=== PATIENT | female | born 1935 | race Caucasian/White ===

== ENCOUNTER 2017-09-04 13:13 | Emergency (ER) | payer OTHER ==
[~2017-09-04] VITALS: Ht 162.6 cm; Wt 59.8 kg
[~2017-09-04 13:13] MED LIST: ALPR0.25 PO; ASPI325T17 PO; CALC-141 PO; CHOL200074 PO; ENOX40SY4 SQ; HYDR-3240 PO; HYDR-882 PO; LORA-446 PO; MELO15TA24 PO; MIRT15TA4 PO; MULT-658 PO; OMEP20CA9 PO; OXYC10TA6 PO; ROPI2TAB4 PO; SENN8.6T87 PO; VANC125C2 PO
[2017-09-04] MEDS ORDERED: ACETAMINOPHEN 500 MG TABLET ONE (14:45)
[2017-09-04 14:53] LABS: MICROSCOPIC INDICATED
[2017-09-04 14:54] LABS: BASOPHILS # (AUTO) 0.02 x10^3/uL (0-0.1); BASOPHILS % (AUTO) 0 % (0-1); EOSINOPHILS % (AUTO) 0 % (1-7); LYMPHOCYTES % (AUTO) 5 % (22-44); MD NO; MEAN CORPUSCULAR HEMOGLOBIN 28.4 pg (27.0-34.8); MEAN CORPUSCULAR VOLUME 86.1 fL (80-100); MEAN PLATELET VOLUME 9.7 fL (7.4-10.4); MONOCYTES # (AUTO) 0.72 x10^3/uL (0.2-0.8); MONOCYTES % (AUTO) 6 % (2-9); NEUTROPHILS # (AUTO) 10.43 x10^3/uL (1.8-6.8); NEUTROPHILS % (AUTO) 89 % (42-75); PLATELET COUNT 222 x10^3/uL (130-400); RED BLOOD COUNT 4.15 x10^6/uL (3.82-5.3); RED CELL DISTRIBUTION WIDTH 15.5 % (9.6-15.2)
[2017-09-04 14:55] LABS: CULTURE INDICATED? YES
[2017-09-04] MEDS ORDERED: ACETAMINOPHEN 500 MG TABLET PO ONE (15:00)
[2017-09-04 15:01] LABS: ALBUMIN 3.4 g/dL (3.4-5.0); ANION GAP 7 mmol/L (5-15); CALCIUM 9.7 mg/dL (8.5-10.1); CHLORIDE 107 mmol/L (98-107); CREATININE 0.85 mg/dL (0.55-1.02)
[2017-09-04 15:32] VITALS: BP 107/53
[2017-09-04] MEDS ORDERED: CEFTRIAXONE 1,000 MG ONE (15:40)
[2017-09-04] MEDS ORDERED: LIDOCAINE-MPF 1%, 2ML ONE (15:40)
[2017-09-04] MEDS ORDERED: CEFTRIAXONE 1,000 MG IM ONE (16:00)
== END 2017-09-04 16:24 | disposition home or self-care (01) ==
LOC: ED 15:43
DX: N30.00 Acute cystitis without hematuria (principal); R50.9 Fever, unspecified
CPT/HCPCS: 36415; 71045; 80048; 81001; 82040; 83605; 84145; 85025; 87040; 87077; 87086; 87186; 93005; 96372; 99285; J0696

== ENCOUNTER 2017-09-27 00:14 | Inpatient (IN) | payer OTHER ==
[~2017-09-27] VITALS: Ht 162.6 cm; Wt 65.5 kg
[2017-09-27] MEDS ORDERED: SODIUM CHLORIDE 0.9% 1,000ML IVBOLUS ONE (00:30)
[2017-09-27 00:44] LABS: BASOPHILS # (AUTO) 0.02 x10^3/uL (0-0.1); BASOPHILS % (AUTO) 0 % (0-1); EOSINOPHILS % (AUTO) 0 % (1-7); LYMPHOCYTES # (AUTO) 0.36 x10^3/uL (1-3.4); LYMPHOCYTES % (AUTO) 3 % (22-44); MD NO; MEAN CORPUSCULAR HEMOGLOBIN 28.6 pg (27.0-34.8); MEAN CORPUSCULAR HGB CONC 34.1 g/dL (32.4-35.8); MEAN CORPUSCULAR VOLUME 83.7 fL (80-100); MONOCYTES % (AUTO) 5 % (2-9); NEUTROPHILS # (AUTO) 10.09 x10^3/uL (1.8-6.8); NEUTROPHILS % (AUTO) 91 % (42-75); PLATELET COUNT 318 x10^3/uL (130-400); RED BLOOD COUNT 3.34 x10^6/uL (3.82-5.3); RED CELL DISTRIBUTION WIDTH 15.1 % (9.6-15.2)
[2017-09-27 00:56] LABS: ALANINE AMINOTRANSFERASE 27 U/L (12-78); ALBUMIN 2.1 g/dL (3.4-5.0); ANION GAP 13 mmol/L (5-15); CALCIUM 7.9 mg/dL (8.5-10.1); CHLORIDE 102 mmol/L (98-107); CREATININE 0.96 mg/dL (0.55-1.02)
[2017-09-27 00:58] LABS: ALKALINE PHOSPHATASE 50 U/L (45-117); BILIRUBIN,TOTAL 0.4 mg/dL (0.2-1.0); TOTAL PROTEIN 6.3 g/dL (6.4-8.2)
[2017-09-27 01:26] LABS: MICROSCOPIC AUTO
[2017-09-27 01:30] LABS: CULTURE INDICATED? YES
[2017-09-27] MEDS ORDERED: CEFTRIAXONE PMX 1GM/50ML 50 ML ONE (01:47)
[2017-09-27] MEDS ORDERED: CEFTRIAXONE 1,000 MG in SODIUM CHLORIDE 0.9% 50 ML IVPB ONE (02:00)
[2017-09-27] MEDS ORDERED: POTASSIUM CHLORIDE 40 MEQ in SODIUM CHLORIDE 0.9% 500 ML IV ONE (02:00)
[2017-09-27] MEDS ORDERED: PHENAZOPYRIDINE 200 MG TABLET PO ONE (02:00)
[2017-09-27] MEDS ORDERED: PHENAZOPYRIDINE 200 MG TABLET ONE (02:17)
[2017-09-27] MEDS ORDERED: ONDANSETRON 2MG/ML, 2ML IVPush PRN (02:30)
[2017-09-27] MEDS ORDERED: DOCUSATE 100 MG CAPSULE PO PRN (02:30)
[2017-09-27] MEDS ORDERED: ENALAPRILAT 1.25 MG/ML, 2ML IVPush PRN (02:30)
[2017-09-27] MEDS ORDERED: PROMETHAZINE 25 MG/ML, 1ML IM PRN (02:30)
[2017-09-27] MEDS ORDERED: morphine SULFATE 10 MG/ML, 1ML IVPush PRN (02:30)
[2017-09-27] MEDS ORDERED: hydrALAzine 20 MG/ML, 1ML IVPush PRN (02:30)
[2017-09-27] MEDS ORDERED: ACETAMINOPHEN 325 MG TABLET PO PRN (02:30)
[2017-09-27] MEDS ORDERED: OXYcodone IR 5MG TABLET PO PRN (02:30)
[2017-09-27] MEDS ORDERED: POLYETHYLENE GLYCOL 17 GM PACKET PO PRN (02:30)
[2017-09-27] MEDS ORDERED: LABETALOL 5MG/ML, 20ML IVPush PRN (02:30)
[2017-09-27] MEDS ORDERED: ONDANSETRON ODT 4 MG PO PRN (02:30)
[2017-09-27] MEDS ORDERED: BISACODYL 10 MG SUPP PR PRN (02:30)
[2017-09-27 02:58] LABS: HEMOGLOBIN A1C 6.2 % (4.2-6.3)
[2017-09-27] MEDS ORDERED: CEFTRIAXONE 1,000 MG in SODIUM CHLORIDE 0.9% 50 ML IV ONE (03:00)
[2017-09-27 03:01] LABS: FREE T4 (FREE THYROXINE) 1.28 ng/dL (0.76-1.46); THYROID STIMULATING HORMONE 0.565 mIU/L (0.358-3.740)
[2017-09-27 04:14] VITALS: BP 95/51
[2017-09-27] MEDS ORDERED: MAGNESIUM SULFATE PMX 2GM/50ML 50 ML IV ONE (08:00)
[2017-09-27 08:19] VITALS: BP 84/50
[2017-09-27 08:37] VITALS: BP 92/58
[2017-09-27] MEDS: NS + 40MEQ KCL 1,000 ML IV SCH ×2 (08:38→22:46)
[2017-09-27] MEDS: ASPIRIN 325 MG TABLET PO SCH ×2 (08:40→22:26)
[2017-09-27] MEDS: MAGNESIUM CHLORIDE 64 MG TABLET.DR PO SCH ×2 (10:48→22:26)
[2017-09-27 14:10] VITALS: BP 98/62
[2017-09-27 20:44] VITALS: BP 118/76
[2017-09-27] MEDS: ROPINIROLE 1MG TABLET PO SCH (22:26)
[2017-09-28 01:37] VITALS: BP 106/69
[2017-09-28] MEDS: CEFTRIAXONE 2 GM in SODIUM CHLORIDE 0.9% 50 ML IV SCH (02:20)
[2017-09-28 05:33] LABS: ALANINE AMINOTRANSFERASE 38 U/L (12-78); ALBUMIN 1.9 g/dL (3.4-5.0); ANION GAP 8 mmol/L (5-15); CALCIUM 7.8 mg/dL (8.5-10.1); CHLORIDE 114 mmol/L (98-107); CREATININE 0.63 mg/dL (0.55-1.02)
[2017-09-28 05:34] LABS: BASOPHILS % (AUTO) 0 % (0-1); EOSINOPHILS # (AUTO) 0.03 x10^3/uL (0-0.4); EOSINOPHILS % (AUTO) 1 % (1-7); LYMPHOCYTES # (AUTO) 1.55 x10^3/uL (1-3.4); LYMPHOCYTES % (AUTO) 21 % (22-44); MD NO; MEAN CORPUSCULAR HEMOGLOBIN 28.8 pg (27.0-34.8); MEAN CORPUSCULAR HGB CONC 34.2 g/dL (32.4-35.8); MEAN CORPUSCULAR VOLUME 84.4 fL (80-100); MEAN PLATELET VOLUME 8.9 fL (7.4-10.4); MONOCYTES # (AUTO) 0.75 x10^3/uL (0.2-0.8); MONOCYTES % (AUTO) 10 % (2-9); NEUTROPHILS # (AUTO) 5.18 x10^3/uL (1.8-6.8); NEUTROPHILS % (AUTO) 69 % (42-75); PLATELET COUNT 296 x10^3/uL (130-400); RED BLOOD COUNT 3.19 x10^6/uL (3.82-5.3); RED CELL DISTRIBUTION WIDTH 15.3 % (9.6-15.2)
[2017-09-28 05:42] LABS: ALKALINE PHOSPHATASE 55 U/L (45-117); BILIRUBIN,TOTAL 0.3 mg/dL (0.2-1.0); CHOL/HDL RATIO 4.3; CHOLESTEROL, TOTAL 90 mg/dL (140-239); HDL CHOL % 23 % (28-40); HDL CHOLESTEROL (DIRECT) 21 mg/dL (40-60); LDL CHOLESTEROL,CALCULATED 47 mg/dL (54-169); LDL/HDL RATIO 2.2 (0.5-3.0); TOTAL PROTEIN 5.9 g/dL (6.4-8.2); TRIGLYCERIDES 109 mg/dL (50-200); VLDL CHOLESTEROL 22 mg/dL (0-25)
[2017-09-28 07:19] VITALS: BP 121/67
[2017-09-28] MEDS: MAGNESIUM CHLORIDE 64 MG TABLET.DR PO SCH ×2 (08:43→20:17)
[2017-09-28] MEDS: ASPIRIN 325 MG TABLET PO SCH ×2 (08:43→20:17)
[2017-09-28 12:01] VITALS: BP 114/66
[2017-09-28 19:30] VITALS: BP 128/80
[2017-09-28] MEDS: ROPINIROLE 1MG TABLET PO SCH (20:17)
[2017-09-29] MEDS: CEFTRIAXONE 2 GM in SODIUM CHLORIDE 0.9% 50 ML IV SCH (02:07)
[2017-09-29 03:21] VITALS: BP 121/75
[2017-09-29 07:10] VITALS: BP 144/83
[2017-09-29] MEDS: ASPIRIN 325 MG TABLET PO SCH (09:26)
[2017-09-29] MEDS: MAGNESIUM CHLORIDE 64 MG TABLET.DR PO SCH (09:26)
[2017-09-29] MEDS ORDERED: DOCU-131 PO (10:25)
[2017-09-29] MEDS ORDERED: LEVO250T23 PO ×2 (10:25→10:26)
[2017-09-29] MEDS ORDERED: LEVOFLOXACIN 250 MG TABLET PO SCH (10:30)
[2017-09-29 12:40] VITALS: BP 120/79
== END 2017-09-29 15:01 | disposition home or self-care (01) | DRG 871 ==
LOC: ED 02:03 → EDIP 02:20 → 4EST 02:47 → DCLOUNGE 09-29 14:51
PROVIDERS: ADMIT Internal Medicine; ATTEND Internal Medicine
PROC: 0T9B70Z Drainage of Bladder with Drainage Device, Via Natural or Artificial Opening (ICD-10-PCS; principal; 2017-09-27)
DX: A41.9 Sepsis, unspecified organism (principal); G93.41 Metabolic encephalopathy; E43 Unspecified severe protein-calorie malnutrition; N10 Acute pyelonephritis; B96.20 Unspecified Escherichia coli [E. coli] as the cause of diseases classified elsewhere; D64.9 Anemia, unspecified; F03.90 Unspecified dementia, unspecified severity, without behavioral disturbance, psychotic disturbance, mood disturbance, and anxiety; F41.9 Anxiety disorder, unspecified; G20 Parkinson's disease; G25.81 Restless legs syndrome; E87.6 Hypokalemia; M19.90 Unspecified osteoarthritis, unspecified site; Z79.82 Long term (current) use of aspirin; Z87.440 Personal history of urinary (tract) infections; Z90.710 Acquired absence of both cervix and uterus; Z96.641 Presence of right artificial hip joint; Z68.24 Body mass index [BMI] 24.0-24.9, adult
CPT/HCPCS: 36415; 71045; 80053; 80061; 81001; 83036; 83605; 83690; 83735; 84439; 84443; 85025; 87040; 87077; 87086; 87186; 93005; 96365; 96375; 99285; J0696; J3480; J3475; J7030; J7040

== ENCOUNTER 2019-08-04 18:29 | Observation (INO) | payer MEDICARE, OTHER ==
[~2019-08-04] VITALS: Ht 162.6 cm; Wt 67.8 kg
[~2019-08-04 18:29] MED LIST changes: +DOCU-131 PO; +HYDR-3653 PO; -HYDR-882 PO; +LEVO250T23 PO; +MIRT-34 PO; -MIRT15TA4 PO; -ROPI2TAB4 PO; +ROPI2TAB8 PO; -VANC125C2 PO; +VANC125C3 PO
--- NOTE | 2019-08-04 18:40 | NUR ---
BIB [facility] FOR C/O LUQ ABD PAIN X FEW HRS. STATES SHE HAS BEEN TAKING A LOT OF IBUPROFEN W/O FOOD "FOR QUITE A WHILE". DENIES HX GI BLEED/ULCERS. DENIES BLACK STOOLS STATES HER BM ARE BROWN. PT RESTING ON GURNEY. NADN. MONITORS APPLIED. WARM BLANKET PROVIDED.
--- NOTE | 2019-08-04 19:04 | NUR ---
REPORT GIVEN TO MARGI LAWSON RN.
[2019-08-04 19:13] LABS: MICROSCOPIC INDICATED
[2019-08-04 19:19] LABS: BASOPHILS # (AUTO) 0.04 x10^3/uL (0-0.1); BASOPHILS % (AUTO) 1 % (0-1); EOSINOPHILS # (AUTO) 0.07 x10^3/uL (0-0.4); EOSINOPHILS % (AUTO) 1 % (1-7); LYMPHOCYTES # (AUTO) 1.98 x10^3/uL (1-3.4); LYMPHOCYTES % (AUTO) 27 % (22-44); MD NO; MEAN CORPUSCULAR HEMOGLOBIN 28.5 pg (27.0-34.8); MEAN CORPUSCULAR HGB CONC 32.9 g/dL (32.4-35.8); MEAN CORPUSCULAR VOLUME 86.6 fL (80-100); MONOCYTES % (AUTO) 6 % (2-9); NEUTROPHILS # (AUTO) 4.84 x10^3/uL (1.8-6.8); NEUTROPHILS % (AUTO) 66 % (42-75); PLATELET COUNT 276 x10^3/uL (130-400); RED BLOOD COUNT 4.32 x10^6/uL (3.82-5.3); RED CELL DISTRIBUTION WIDTH 16.5 % (9.6-15.2)
--- NOTE | 2019-08-04 19:25 | NUR ---
ASSUMED CARE OF PT. PT SITTING ON THE SIDE OF THE BED. AWAITING LAB/XRAY RESULTS.
[2019-08-04 19:27] LABS: ALANINE AMINOTRANSFERASE 20 U/L (12-78); ALBUMIN 3.4 g/dL (3.4-5.0); ANION GAP 7 mmol/L (5-15); CALCIUM 9.1 mg/dL (8.5-10.1); CHLORIDE 108 mmol/L (98-107)
[2019-08-04 19:32] LABS: ALKALINE PHOSPHATASE 60 U/L (45-117); BILIRUBIN,TOTAL 0.2 mg/dL (0.2-1.0); CREATININE 0.88 mg/dL (0.55-1.02); TOTAL PROTEIN 7.9 g/dL (6.4-8.2); TROPONIN I < 0.015 ng/mL (0.000-0.045)
[2019-08-04] MEDS ORDERED: SODIUM CHLORIDE 0.9% 1,000ML IVBOLUS ONE (20:30)
[2019-08-04] MEDS ORDERED: CEFTRIAXONE PMX 1GM/50ML 50 ML IV ONE (20:30)
[2019-08-04] MEDS ORDERED: LORazepam 2 MG/ML, 1ML ONE (20:41)
[2019-08-04] MEDS ORDERED: CEFTRIAXONE PMX 1GM/50ML 50 ML ONE (20:42)
[2019-08-04] MEDS ORDERED: hydrALAzine 20 MG/ML, 1ML IVPush PRN (21:00)
[2019-08-04] MEDS ORDERED: LORazepam 2 MG/ML, 1ML IVPush ONE (21:00)
[2019-08-04] MEDS ORDERED: ACETAMINOPHEN 325 MG TABLET PO PRN (21:00)
[2019-08-04] MEDS: LACTATED RINGERS 1,000 ML IV SCH (21:00)
[2019-08-04] MEDS ORDERED: ONDANSETRON 2MG/ML, 2ML IVPush PRN (21:00)
[2019-08-04] MEDS ORDERED: LIDODERM 5% PATCH TD PRN (21:00)
[2019-08-04] MEDS ORDERED: DOCUSATE 100 MG CAPSULE PO PRN (21:00)
[2019-08-04] MEDS ORDERED: IBUPROFEN 600 MG TABLET PO PRN (21:00)
--- NOTE | 2019-08-04 21:04 | NUR ---
PT GIVEN ROCEPHIN AND ATIVAN PER [facility]. REPORT TO LEXUS ON TELE. PT AGREEABLE TO PLAN OF CARE.
[2019-08-04 21:29] VITALS: BP 181/93
[2019-08-04] MEDS: ENOXAPARIN 40 MG/0.4 ML SQ SCH (21:57)
[2019-08-04] MEDS: ROPINIROLE 1MG TABLET PO SCH (21:58)
[2019-08-04 22:00] VITALS: BP 148/85
[2019-08-04] MEDS ORDERED: OXYcodone IR 5MG TABLET ONE (23:13)
[2019-08-04] MEDS ORDERED: CEFTRIAXONE PMX 1GM/50ML 50 ML IV SCH (23:30)
[2019-08-04] MEDS ORDERED: OXYcodone IR 5MG TABLET PO ONE (23:30)
[2019-08-05 00:48] VITALS: BP 126/72
[2019-08-05 01:47] LABS: TROPONIN I < 0.015 ng/mL (0.000-0.045)
[2019-08-05] MEDS: ASPIRIN 325 MG TABLET EC PO SCH (06:00)
[2019-08-05] MEDS: PANTOPRAZOLE 40MG TABLET PO SCH (07:32)
[2019-08-05] MEDS: LACTATED RINGERS 1,000 ML IV SCH ×2 (07:34→22:09)
[2019-08-05 07:43] VITALS: BP 144/78
[2019-08-05 07:48] LABS: BASOPHILS # (AUTO) 0.03 x10^3/uL (0-0.1); BASOPHILS % (AUTO) 1 % (0-1); EOSINOPHILS # (AUTO) 0.02 x10^3/uL (0-0.4); EOSINOPHILS % (AUTO) 0 % (1-7); LYMPHOCYTES # (AUTO) 1.67 x10^3/uL (1-3.4); LYMPHOCYTES % (AUTO) 27 % (22-44); MD NO; MEAN CORPUSCULAR HEMOGLOBIN 28.6 pg (27.0-34.8); MEAN CORPUSCULAR HGB CONC 32.8 g/dL (32.4-35.8); MEAN CORPUSCULAR VOLUME 87.3 fL (80-100); MEAN PLATELET VOLUME 8.7 fL (7.4-10.4); MONOCYTES # (AUTO) 0.36 x10^3/uL (0.2-0.8); MONOCYTES % (AUTO) 6 % (2-9); NEUTROPHILS # (AUTO) 4.04 x10^3/uL (1.8-6.8); NEUTROPHILS % (AUTO) 66 % (42-75); PLATELET COUNT 259 x10^3/uL (130-400); RED BLOOD COUNT 4.39 x10^6/uL (3.82-5.3); RED CELL DISTRIBUTION WIDTH 16.3 % (9.6-15.2)
[2019-08-05 08:02] LABS: TROPONIN I < 0.015 ng/mL (0.000-0.045)
[2019-08-05 08:03] LABS: ANION GAP 6 mmol/L (5-15); CALCIUM 8.9 mg/dL (8.5-10.1); CHLORIDE 109 mmol/L (98-107); CHOLESTEROL, TOTAL 183 mg/dL (140-239); CREATININE 0.73 mg/dL (0.55-1.02); TRIGLYCERIDES 151 mg/dL (50-200); VLDL CHOLESTEROL 30 mg/dL (0-25)
[2019-08-05 08:05] LABS: CHOL/HDL RATIO 2.6; HDL CHOL % 39 % (28-40); HDL CHOLESTEROL (DIRECT) 71 mg/dL (40-60); LDL CHOLESTEROL,CALCULATED 82 mg/dL (54-169); LDL/HDL RATIO 1.2 (0.5-3.0)
[2019-08-05 14:29] VITALS: BP 120/69
[2019-08-05 19:03] VITALS: BP 126/66
[2019-08-05] MEDS: ROPINIROLE 1MG TABLET PO SCH (20:34)
[2019-08-05] MEDS: ENOXAPARIN 40 MG/0.4 ML SQ SCH (20:34)
[2019-08-06 00:41] VITALS: BP 116/71
[2019-08-06] MEDS: ASPIRIN 325 MG TABLET EC PO SCH (05:40)
[2019-08-06] MEDS: PANTOPRAZOLE 40MG TABLET PO SCH (07:07)
[2019-08-06 07:32] VITALS: BP 152/84
[2019-08-06] MEDS ORDERED: CEFD300C37 PO (10:59)
== END 2019-08-06 12:00 | disposition home or self-care (01) ==
LOC: ED 20:44 → INTOOBSV 20:48 → EDIP 20:48 → 4WST 21:19 → DCLOUNGE 08-06 10:51
PROVIDERS: ADMIT Hospitalist; ATTEND Hospitalist
DX: R07.89 Other chest pain (principal); B95.4 Other streptococcus as the cause of diseases classified elsewhere; F02.80 Dementia in other diseases classified elsewhere, unspecified severity, without behavioral disturbance, psychotic disturbance, mood disturbance, and anxiety; F41.9 Anxiety disorder, unspecified; M19.90 Unspecified osteoarthritis, unspecified site; N30.90 Cystitis, unspecified without hematuria; G25.81 Restless legs syndrome; I45.10 Unspecified right bundle-branch block; D63.8 Anemia in other chronic diseases classified elsewhere; G20 Parkinson's disease; K85.00 Idiopathic acute pancreatitis without necrosis or infection; W18.30XA Fall on same level, unspecified, initial encounter; Y93.89 Activity, other specified; Y92.009 Unspecified place in unspecified non-institutional (private) residence as the place of occurrence of the external cause; Z79.899 Other long term (current) drug therapy
CPT/HCPCS: 36415; 71045; 80048; 80053; 80061; 81001; 83690; 83735; 84100; 84484; 85025; 87077; 87086; 87147; 87186; 93005; 96365; 96366; 96372; 96375; 99285; G0378; J0360; J0696; J1650; J2060; J7030; J7120

== ENCOUNTER 2020-08-07 19:04 | Emergency (ER) | payer MEDICARE ==
[~2020-08-07] VITALS: Ht 162.6 cm; Wt 62.0 kg
[~2020-08-07 19:04] MED LIST changes: +AMPI3VIA IV; +ASPI-963 PO; +CEFD300C37 PO; +HYDR-2214 PO; -HYDR-3240 PO; +MIRT-14 PO; -MIRT-34 PO
[2020-08-07 19:40] LABS: BASOPHILS % (AUTO) 1 % (0-1); EOSINOPHILS % (AUTO) 1 % (1-7); LYMPHOCYTES % (AUTO) 19 % (22-44); MEAN CORPUSCULAR HEMOGLOBIN 28.3 pg (27.0-34.8); MEAN CORPUSCULAR HGB CONC 32.7 g/dL (32.4-35.8); MEAN PLATELET VOLUME 9.4 fL (7.4-10.4); MONOCYTES % (AUTO) 7 % (2-9); NEUTROPHILS % (AUTO) 73 % (42-75); PLATELET COUNT 289 x10^3/uL (130-400); RED BLOOD COUNT 4.44 x10^6/uL (3.82-5.3); RED CELL DISTRIBUTION WIDTH 15.8 % (9.6-15.2)
[2020-08-07 19:46] LABS: ANION GAP 6 mmol/L (5-15); CALCIUM 9.4 mg/dL (8.5-10.1); CHLORIDE 104 mmol/L (98-107)
--- NOTE | 2020-08-07 20:15 | NUR ---
U/S tech at bedside
[2020-08-07] MEDS ORDERED: CEFTRIAXONE 1,000 MG ONE (20:18)
[2020-08-07] MEDS ORDERED: LIDOCAINE-MPF 1%, 5ML ONE (20:18)
[2020-08-07] MEDS ORDERED: CEFTRIAXONE 1,000 MG IM ONE (20:30)
[2020-08-07] MEDS ORDERED: AMOXICILLIN/CLAV 875-125MG TABLET PO ONE (21:00)
[2020-08-07] MEDS ORDERED: AMOXICILLIN/CLAV 875-125MG TABLET ONE (21:45)
[2020-08-07 21:49] VITALS: BP 138/67
== END 2020-08-07 22:06 | disposition home or self-care (01) ==
LOC: ED 21:12
DX: L03.115 Cellulitis of right lower limb (principal)
CPT/HCPCS: 36415; 73630; 80048; 85025; 93971; 96372; 99285; J0696

== ENCOUNTER 2020-08-09 09:04 | Outpatient (CLI) | payer MEDICARE | END 2020-08-09 23:59 | disposition home or self-care (01) | LOC: WOUND 09:04 | PROVIDERS: ATTEND Podiatrist Foot & Ankle Surgery | DX: L89.899 Pressure ulcer of other site, unspecified stage (principal); L97.512 Non-pressure chronic ulcer of other part of right foot with fat layer exposed; L84 Corns and callosities; G60.3 Idiopathic progressive neuropathy; M86.172 Other acute osteomyelitis, left ankle and foot; M81.0 Age-related osteoporosis without current pathological fracture; M19.90 Unspecified osteoarthritis, unspecified site; G25.81 Restless legs syndrome; M24.674 Ankylosis, right foot; G20 Parkinson's disease; F03.90 Unspecified dementia, unspecified severity, without behavioral disturbance, psychotic disturbance, mood disturbance, and anxiety; F41.9 Anxiety disorder, unspecified; Z87.891 Personal history of nicotine dependence; Z89.422 Acquired absence of other left toe(s); Z96.641 Presence of right artificial hip joint; Z90.710 Acquired absence of both cervix and uterus | CPT/HCPCS: 11042; 87070; 87205; G0463 ==

== ENCOUNTER 2020-08-13 06:55 | Outpatient (CLI) | payer MEDICARE | END 2020-08-13 23:59 | disposition home or self-care (01) | LOC: CFH 06:55 → RAD 23:59 | PROVIDERS: ATTEND Podiatrist Foot & Ankle Surgery | DX: M85.871 Other specified disorders of bone density and structure, right ankle and foot (principal); M24.674 Ankylosis, right foot; L89.899 Pressure ulcer of other site, unspecified stage ==

== ENCOUNTER → 2020-08-16 | Outpatient (CLI) | payer MEDICARE | END | disposition home or self-care (01) | LOC: WOUND 11:03 | PROVIDERS: ATTEND Podiatrist Foot & Ankle Surgery | DX: L89.899 Pressure ulcer of other site, unspecified stage (principal); L97.512 Non-pressure chronic ulcer of other part of right foot with fat layer exposed; G60.3 Idiopathic progressive neuropathy; L84 Corns and callosities; M86.172 Other acute osteomyelitis, left ankle and foot; M81.0 Age-related osteoporosis without current pathological fracture; M19.90 Unspecified osteoarthritis, unspecified site; G25.81 Restless legs syndrome; M24.674 Ankylosis, right foot; G20 Parkinson's disease; F03.90 Unspecified dementia, unspecified severity, without behavioral disturbance, psychotic disturbance, mood disturbance, and anxiety; F41.9 Anxiety disorder, unspecified; Z87.891 Personal history of nicotine dependence; Z89.422 Acquired absence of other left toe(s); Z96.641 Presence of right artificial hip joint; Z90.710 Acquired absence of both cervix and uterus | CPT/HCPCS: 11042 ==

== ENCOUNTER → 2020-08-30 | Outpatient (CLI) | payer MEDICARE | END | disposition home or self-care (01) | LOC: WOUND 08:15 | PROVIDERS: ATTEND Podiatrist Foot & Ankle Surgery | DX: L89.899 Pressure ulcer of other site, unspecified stage (principal); L97.512 Non-pressure chronic ulcer of other part of right foot with fat layer exposed; G60.3 Idiopathic progressive neuropathy; L84 Corns and callosities; M86.172 Other acute osteomyelitis, left ankle and foot; M81.0 Age-related osteoporosis without current pathological fracture; M19.90 Unspecified osteoarthritis, unspecified site; G25.81 Restless legs syndrome; M24.674 Ankylosis, right foot; G20 Parkinson's disease; F03.90 Unspecified dementia, unspecified severity, without behavioral disturbance, psychotic disturbance, mood disturbance, and anxiety; F41.9 Anxiety disorder, unspecified; M85.80 Other specified disorders of bone density and structure, unspecified site; Z87.891 Personal history of nicotine dependence; Z89.422 Acquired absence of other left toe(s); Z96.641 Presence of right artificial hip joint; Z90.710 Acquired absence of both cervix and uterus | CPT/HCPCS: 11042 ==

== ENCOUNTER 2020-09-20 08:57 | Outpatient (CLI) | payer MEDICARE | END 2020-09-20 23:59 | disposition home or self-care (01) | LOC: WOUND 08:57 | PROVIDERS: ATTEND Podiatrist Foot & Ankle Surgery | DX: E11.621 Type 2 diabetes mellitus with foot ulcer (principal); L97.422 Non-pressure chronic ulcer of left heel and midfoot with fat layer exposed; E11.69 Type 2 diabetes mellitus with other specified complication; M86.172 Other acute osteomyelitis, left ankle and foot; L84 Corns and callosities; I10 Essential (primary) hypertension; M81.0 Age-related osteoporosis without current pathological fracture; G60.3 Idiopathic progressive neuropathy; G20 Parkinson's disease; M19.90 Unspecified osteoarthritis, unspecified site; G25.81 Restless legs syndrome; F02.80 Dementia in other diseases classified elsewhere, unspecified severity, without behavioral disturbance, psychotic disturbance, mood disturbance, and anxiety; F41.9 Anxiety disorder, unspecified; Z87.891 Personal history of nicotine dependence; Z96.641 Presence of right artificial hip joint; Z79.82 Long term (current) use of aspirin; Z79.899 Other long term (current) drug therapy; Z90.710 Acquired absence of both cervix and uterus; Z89.422 Acquired absence of other left toe(s) | CPT/HCPCS: G0463 ==

== ENCOUNTER 2020-10-04 08:56 | Outpatient (CLI) | payer MEDICARE | END 2020-10-04 23:59 | disposition home or self-care (01) | LOC: WOUND 08:56 | PROVIDERS: ATTEND Podiatrist Foot & Ankle Surgery | DX: E11.621 Type 2 diabetes mellitus with foot ulcer (principal); L89.899 Pressure ulcer of other site, unspecified stage; L97.518 Non-pressure chronic ulcer of other part of right foot with other specified severity; E11.69 Type 2 diabetes mellitus with other specified complication; M86.679 Other chronic osteomyelitis, unspecified ankle and foot; L84 Corns and callosities; M81.0 Age-related osteoporosis without current pathological fracture; G60.3 Idiopathic progressive neuropathy; M19.90 Unspecified osteoarthritis, unspecified site; H91.90 Unspecified hearing loss, unspecified ear; F02.80 Dementia in other diseases classified elsewhere, unspecified severity, without behavioral disturbance, psychotic disturbance, mood disturbance, and anxiety; E11.42 Type 2 diabetes mellitus with diabetic polyneuropathy; F41.9 Anxiety disorder, unspecified; Z87.891 Personal history of nicotine dependence; Z96.641 Presence of right artificial hip joint; Z90.710 Acquired absence of both cervix and uterus; Z89.422 Acquired absence of other left toe(s); Z89.411 Acquired absence of right great toe; Z86.718 Personal history of other venous thrombosis and embolism | CPT/HCPCS: G0463 ==

== ENCOUNTER → 2020-11-21 | Outpatient (CLI) | payer MEDICARE ==
[2020-11-21 08:28] LABS: BASOPHILS % (AUTO) 1 % (0-1); EOSINOPHILS % (AUTO) 1 % (1-7); LYMPHOCYTES % (AUTO) 28 % (22-44); MEAN CORPUSCULAR HEMOGLOBIN 28.1 pg (27.0-34.8); MEAN CORPUSCULAR HGB CONC 32.7 g/dL (32.4-35.8); MEAN PLATELET VOLUME 8.8 fL (7.4-10.4); MONOCYTES % (AUTO) 4 % (2-9); NEUTROPHILS % (AUTO) 67 % (42-75); PLATELET COUNT 262 x10^3/uL (130-400); RED BLOOD COUNT 4.55 x10^6/uL (3.82-5.3); RED CELL DISTRIBUTION WIDTH 15.7 % (9.6-15.2)
[2020-11-21 08:31] LABS: HCT (SEDRATE) 38.6 % (34.6-47.8)
[2020-11-21 08:33] LABS: ALBUMIN 3.5 g/dL (3.4-5.0); ANION GAP 6 mmol/L (5-15); CALCIUM 9.1 mg/dL (8.5-10.1); CHLORIDE 107 mmol/L (98-107)
[2020-11-21 08:40] LABS: ALANINE AMINOTRANSFERASE 22 U/L (12-78); ALKALINE PHOSPHATASE 75 U/L (45-117); BILIRUBIN,TOTAL 0.4 mg/dL (0.2-1.0); TOTAL PROTEIN 8.2 g/dL (6.4-8.2)
== END | disposition home or self-care (01) ==
LOC: CFH 06:45
PROVIDERS: ATTEND Podiatrist Foot & Ankle Surgery
DX: I82.501 Chronic embolism and thrombosis of unspecified deep veins of right lower extremity (principal); M86.679 Other chronic osteomyelitis, unspecified ankle and foot
CPT/HCPCS: 36415; 80053; 85025; 85651; 86140